=== PATIENT | male | born 1955 | race Hispanic/Latino ===

== ENCOUNTER 2016-11-25 16:14 | Emergency (ER) | payer MEDICARE ==
[2016-11-25 16:26] VITALS: TEMP 97.9; O2SAT 93
--- NOTE | 2016-11-25 16:57 | ED.PDOC ---
History of Present Illness - General Chief Complaint: Eye Problems Stated Complaint: eye complaint Time Seen by Provider: 11/25/16 16:35 Source: patient Exam Limitations: no limitations - History of Present Illness Initial Comments: Patient presents with bleeding under the left conjunctiva for about 45 minutes. Sudden onset. No trauma. Patient is on coumadin for chronic DVTs. He says his vision is a little blurry but otherwise unaffected. No other complaints. Timing/Duration: 1 hour Severity: moderate Improving Factors: nothing Worsening Factors: nothing Associated Symptoms: denies symptoms Allergies/Adverse Reactions: Allergies Penicillins Allergy (Verified 11/25/16 16:25) Home Medications: Ambulatory Orders Diltiazem HCl Coated Beads [Diltiazem HCl ER] 240 mg PO DAILY 07/05/13 Docusate Sodium [Colace] 100 mg PO DAILY 07/05/13 Furosemide [Lasix] 20 mg PO DAILY 07/05/13 Gabapentin [Neurontin] 800 mg PO ACHS 07/05/13 HYDROcodone 10MG/APAP 325MG [[place] 10/325] 1 ea PO Q4H PRN 07/05/13 Hydroxychloroquine [Plaquenil] 200 mg PO BID 07/05/13 Metformin HCl 1,000 mg PO BID 07/05/13 Methocarbamol [Robaxin] 750 mg PO Q6H 07/05/13 Oxycodone HCl [Oxycontin] 120 mg PO BID 07/05/13 Potassium Chloride [Micro-K] 10 meq PO BID 07/05/13 predniSONE 20 mg PO DAILY 07/05/13 Insulin Regular (Human) [Novolin R] 100 unit IJ .JSEE&HS #0 ml 07/06/13 hydrOXYzine HCl [Atarax] 25 mg PO Q6HRS PRN #20 tab 01/22/14 Warfarin Sodium [Coumadin] 15 mg PO DAILY 01/24/14 Doxycycline Hyclate 100 mg PO BID #20 tab 01/25/14 Acetaminophen W/ Codeine [Tylenol W/ CODEINE #3] 1 ea PO Q6H #30 11/07/14 Clindamycin HCl [Cleocin] 600 mg PO BID #28 cap 11/07/14 Levofloxacin [Levaquin] 500 mg PO QAM #7 tab 11/07/14 Mupirocin 2 % [Bactroban] 22 gm EX BID #1 tube 11/07/14 Naproxen [Naprosyn] 500 mg PO BID #30 tab 11/07/14 Tramadol HCl [Ultram] 50 mg PO Q6H #30 tab 11/07/14 Review of Systems - Review of Systems Constitutional: States: no symptoms reported EENTM: States: see HPI Respiratory: States: no symptoms reported Cardiology: States: no symptoms reported Gastrointestinal/Abdominal: States: no symptoms reported Genitourinary: States: no symptoms reported Musculoskeletal: States: no symptoms reported Skin: States: no symptoms reported Neurological: States: no symptoms reported Endocrine: States: no symptoms reported Hematologic/Lymphatic: States: no symptoms reported Past Medical History (General) - Patient Medical History Hx Seizures: No Hx Stroke: No Hx Dementia: No Hx Asthma: Yes Hx of COPD: Yes Hx Cardiac Disorders: Yes Hx Congestive Heart Failure: No Hx Pacemaker: No Hx Hypertension: Yes Hx Thyroid Disease: No Hx Diabetes: Yes Hx Gastroesophageal Reflux: No Hx Renal Disease: No Hx Cancer: Yes Hx of HIV: No Hx Hepatitis C: No Hx MRSA: No Surgical History: cholecystectomy, other - Vaccination History Hx Tetanus, Diphtheria Vaccination: Yes - 2013 Hx Influenza Vaccination: No Hx Pneumococcal Vaccination: No - Social History Hx Tobacco Use: No Hx Chewing Tobacco Use: No Hx Alcohol Use: No Hx Substance Use: No Hx Substance Use Treatment: No Hx Depression: Yes Hx Physical Abuse: No Hx Emotional Abuse: No Hx Suspected Abuse: No - Activities of Daily Living Hospice Agency (if applicable):: None - Female History Patient : No Family Medical History - Family History Mother Living Status: Age at (years of age): 86 Cause of : myocardial infarction Hx Cardiac Disease: Yes Hx Family Diabetes: Yes Father Family History: No Known Living Status: Hx Family;Other: liver CA Physical Exam - Physical Exam General Appearance: Alert Eye Exam: left other - conjunctival hemorrhage, bulging Respiratory: lungs clear, normal breath sounds Cardiovascular/Chest: regular rate, rhythm Gastrointestinal/Abdominal: normal bowel sounds, non tender, soft Progress - Progress Progress: 11/25/16 17:[address] Mota at [facility] who agreed on the diagnosis of bullous subconjunctival hemorrhage and agreed to see the patient today. Patient went by POV. Departure - Departure Clinical Impression: Subconjunctival hemorrhage Disposition: Discharge to Home or Self Care Condition: Good Departure Forms: ED Discharge - Pt. Copy, Patient Portal Self Enrollment Diet: resume usual diet Activity: increase activity as tolerated Referrals: Michael Flynn MD [Primary Care Provider] - 1-2 Weeks Home Medications: Ambulatory Orders Diltiazem HCl Coated Beads [Diltiazem HCl ER] 240 mg PO DAILY 07/05/13 Docusate Sodium [Colace] 100 mg PO DAILY 07/05/13 Furosemide [Lasix] 20 mg PO DAILY 07/05/13 Gabapentin [Neurontin] 800 mg PO ACHS 07/05/13 HYDROcodone 10MG/APAP 325MG [[place] 10/325] 1 ea PO Q4H PRN 07/05/13 Hydroxychloroquine [Plaquenil] 200 mg PO BID 07/05/13 Metformin HCl 1,000 mg PO BID 07/05/13 Methocarbamol [Robaxin] 750 mg PO Q6H 07/05/13 Oxycodone HCl [Oxycontin] 120 mg PO BID 07/05/13 Potassium Chloride [Micro-K] 10 meq PO BID 07/05/13 predniSONE 20 mg PO DAILY 07/05/13 Insulin Regular (Human) [Novolin R] 100 unit IJ .JESE&HS #0 ml 07/06/13 hydrOXYzine HCl [Atarax] 25 mg PO Q6HRS PRN #20 tab 01/22/14 Warfarin Sodium [Coumadin] 15 mg PO DAILY 01/24/14 Doxycycline Hyclate 100 mg PO BID #20 tab 01/25/14 Acetaminophen W/ Codeine [Tylenol W/ CODEINE #3] 1 ea PO Q6H #30 11/07/14 Clindamycin HCl [Cleocin] 600 mg PO BID #28 cap 11/07/14 Levofloxacin [Levaquin] 500 mg PO QAM #7 tab 11/07/14 Mupirocin 2 % [Bactroban] 22 gm EX BID #1 tube 11/07/14 Naproxen [Naprosyn] 500 mg PO BID #30 tab 11/07/14 Tramadol HCl [Ultram] 50 mg PO Q6H #30 tab 11/07/14 Additional Instructions: To to [facility] after leaving here and see Dr. Mota.
[2016-11-25 17:25] VITALS: BP 150/105
== END 2016-11-25 17:22 | disposition home or self-care (01) ==
LOC: ER 16:14
DX: H11.32 Conjunctival hemorrhage, left eye (principal); I82.509 Chronic embolism and thrombosis of unspecified deep veins of unspecified lower extremity; Z79.01 Long term (current) use of anticoagulants; J44.9 Chronic obstructive pulmonary disease, unspecified; I10 Essential (primary) hypertension; E11.9 Type 2 diabetes mellitus without complications

== ENCOUNTER 2018-01-17 20:01 | Emergency (ER) | payer MEDICARE ==
[2018-01-17 20:19] VITALS: TEMP 99
--- NOTE | 2018-01-17 20:32 | ED.PDOC ---
History of Present Illness - General Chief Complaint: General Stated Complaint: bleeding tongue Time Seen by Provider: 01/17/18 20:21 Source: patient Exam Limitations: no limitations - History of Present Illness Initial Comments: Patient presents with tongue bleeding since about 1-2 hours [employer]. He says he thinks his tongue got cracked from some acidic food. He has had this happen before. Today was different because the bleeding would not stop. He is on coumading for "blood clots". He has a blood dyscrasia that makes him hypercoagulable. No other complaints today. Last had his INR checked three days ago but does not have the results, yet. Timing/Duration: 1-3 hours Severity: mild Improving Factors: nothing Worsening Factors: nothing Associated Symptoms: denies symptoms Allergies/Adverse Reactions: Allergies Penicillins Allergy (Verified 01/17/18 20:18) Home Medications: Ambulatory Orders Diltiazem HCl Coated Beads [Diltiazem HCl ER] 240 mg PO DAILY 07/05/13 Docusate Sodium [Colace] 100 mg PO DAILY 07/05/13 Furosemide [Lasix] 20 mg PO DAILY 07/05/13 Gabapentin [Neurontin] 800 mg PO ACHS 07/05/13 HYDROcodone 10MG/APAP 325MG [[place] 10/325] 1 ea PO Q4H PRN 07/05/13 Hydroxychloroquine [Plaquenil] 200 mg PO BID 07/05/13 Metformin HCl 1,000 mg PO BID 07/05/13 Methocarbamol [Robaxin] 750 mg PO Q6H 07/05/13 Oxycodone HCl [Oxycontin] 120 mg PO BID 07/05/13 Potassium Chloride [Micro-K] 10 meq PO BID 07/05/13 predniSONE 20 mg PO DAILY 07/05/13 Insulin Regular (Human) [Novolin R] 100 unit IJ .JESE&HS #0 ml 07/06/13 hydrOXYzine HCl [Atarax] 25 mg PO Q6HRS PRN #20 tab 01/22/14 Warfarin Sodium [Coumadin] 15 mg PO DAILY 01/24/14 Doxycycline Hyclate 100 mg PO BID #20 tab 01/25/14 Acetaminophen W/ Codeine [Tylenol W/ CODEINE #3] 1 ea PO Q6H #30 11/07/14 Clindamycin HCl [Cleocin] 600 mg PO BID #28 cap 11/07/14 Levofloxacin [Levaquin] 500 mg PO QAM #7 tab 11/07/14 Mupirocin 2 % [Bactroban] 22 gm EX BID #1 tube 11/07/14 Naproxen [Naprosyn] 500 mg PO BID #30 tab 11/07/14 Tramadol HCl [Ultram] 50 mg PO Q6H #30 tab 11/07/14 Review of Systems - Review of Systems Constitutional: States: no symptoms reported EENTM: States: no symptoms reported Respiratory: States: no symptoms reported Cardiology: States: no symptoms reported Gastrointestinal/Abdominal: States: no symptoms reported Genitourinary: States: see HPI Musculoskeletal: States: no symptoms reported Skin: States: no symptoms reported Neurological: States: no symptoms reported Endocrine: States: no symptoms reported Hematologic/Lymphatic: States: see HPI Past Medical History (General) - Patient Medical History Hx Seizures: No Hx Stroke: No Hx Dementia: No Hx Asthma: Yes Hx of COPD: Yes Hx Cardiac Disorders: Yes Hx Congestive Heart Failure: No Hx Pacemaker: No Hx Hypertension: Yes Hx Thyroid Disease: No Hx Diabetes: Yes Hx Gastroesophageal Reflux: No Hx Renal Disease: No Hx Cancer: Yes Hx of HIV: No Hx Hepatitis C: No Hx MRSA: No - Vaccination History Hx Tetanus, Diphtheria Vaccination: Yes - 2013 Hx Influenza Vaccination: Yes Hx Pneumococcal Vaccination: Yes - Social History Hx Tobacco Use: No Hx Chewing Tobacco Use: No Hx Alcohol Use: No Hx Substance Use: No Hx Substance Use Treatment: No Hx Depression: Yes Hx Physical Abuse: No Hx Emotional Abuse: No Hx Suspected Abuse: No - Female History Patient : No Family Medical History - Family History Mother Living Status: Age at (years of age): 86 Cause of : myocardial infarction Hx Cardiac Disease: Yes Hx Family Diabetes: Yes Father Family History: No Known Living Status: Hx Family;Other: liver CA Physical Exam - Physical Exam General Appearance: Alert Ears, Nose, Throat: other - tongue has a superficial abrasion on it that is hemorrhaging a small amount. Located on superior left surface. Respiratory: lungs clear, normal breath sounds Cardiovascular/Chest: normal peripheral pulses, regular rate, rhythm Gastrointestinal/Abdominal: normal bowel sounds, non tender, soft Skin Exam: normal color Progress - Progress Progress: 01/17/18 22:03 Guaze soaked with lidocaine and epinephrine failed to stop the bleeding. A small amount of silver nitrate lessened the bleeding and then it was followed with gauze soaked with Neosynephrine. The bleeding then stopped. Care instructions given. E.R. warnings given. Questions were elicited and answered. The patient voiced understanding and agreement with the plan. Laboratory Tests 01/17/18 01/17/18 20:30 20:30 PT 30.8 H* INR 3.11 H POC Glucose 222 H Departure - Departure Clinical Impression: Coagulopathy, Abrasion of tongue Disposition: Discharge to Home or Self Care Condition: Good Departure Forms: ED Discharge - Pt. Copy, Patient Portal Self Enrollment Diet: resume usual diet Activity: increase activity as tolerated Referrals: Michael Flynn MD [Primary Care Provider] - 1-2 Weeks Home Medications: Ambulatory Orders Diltiazem HCl Coated Beads [Diltiazem HCl ER] 240 mg PO DAILY 07/05/13 Docusate Sodium [Colace] 100 mg PO DAILY 07/05/13 Furosemide [Lasix] 20 mg PO DAILY 07/05/13 Gabapentin [Neurontin] 800 mg PO ACHS 07/05/13 HYDROcodone 10MG/APAP 325MG [[place] 10/325] 1 ea PO Q4H PRN 07/05/13 Hydroxychloroquine [Plaquenil] 200 mg PO BID 07/05/13 Metformin HCl 1,000 mg PO BID 07/05/13 Methocarbamol [Robaxin] 750 mg PO Q6H 07/05/13 Oxycodone HCl [Oxycontin] 120 mg PO BID 07/05/13 Potassium Chloride [Micro-K] 10 meq PO BID 07/05/13 predniSONE 20 mg PO DAILY 07/05/13 Insulin Regular (Human) [Novolin R] 100 unit IJ .JESE&HS #0 ml 07/06/13 hydrOXYzine HCl [Atarax] 25 mg PO Q6HRS PRN #20 tab 01/22/14 Warfarin Sodium [Coumadin] 15 mg PO DAILY 01/24/14 Doxycycline Hyclate 100 mg PO BID #20 tab 01/25/14 Acetaminophen W/ Codeine [Tylenol W/ CODEINE #3] 1 ea PO Q6H #30 11/07/14 Clindamycin HCl [Cleocin] 600 mg PO BID #28 cap 11/07/14 Levofloxacin [Levaquin] 500 mg PO QAM #7 tab 11/07/14 Mupirocin 2 % [Bactroban] 22 gm EX BID #1 tube 11/07/14 Naproxen [Naprosyn] 500 mg PO BID #30 tab 11/07/14 Tramadol HCl [Ultram] 50 mg PO Q6H #30 tab 11/07/14 Additional Instructions: You may use drops of the neosynephrine spray to help stop bleeding if it starts again. Only soft foods or liquids for the next 12 hours. Return to the E.R. if bleeding starts up again and you cannot stop it with gauze and neosynephrine.
[2018-01-17] MEDS ORDERED: LIDOCAINE 1% W/ EPINEPHRINE 20 ML VIAL INJ ONE (20:53)
[2018-01-17] MEDS ORDERED: PHENYLEPHRINE 0.5% ONE (21:20)
[2018-01-17] MEDS ORDERED: PHENYLEPHRINE 0.5% BNAS ONE (21:33)
[2018-01-17 22:16] VITALS: BP 145/88; O2SAT 99
== END 2018-01-17 22:17 | disposition home or self-care (01) ==
LOC: ER 20:01
DX: R79.1 Abnormal coagulation profile (principal); S00.512A Abrasion of oral cavity, initial encounter; D75.9 Disease of blood and blood-forming organs, unspecified; I10 Essential (primary) hypertension; E11.9 Type 2 diabetes mellitus without complications; J44.9 Chronic obstructive pulmonary disease, unspecified; Z79.01 Long term (current) use of anticoagulants; Z85.9 Personal history of malignant neoplasm, unspecified; Z79.899 Other long term (current) drug therapy; Z79.4 Long term (current) use of insulin; Z88.0 Allergy status to penicillin; X58.XXXA Exposure to other specified factors, initial encounter; Y92.9 Unspecified place or not applicable

== ENCOUNTER 2018-11-06 21:54 | Emergency (ER) | payer MEDICARE ==
--- NOTE | 2018-11-06 22:26 | ED.PDOC ---
History of Present Illness - General Chief Complaint: Dental/Mouth Stated Complaint: bleeding tongue Time Seen by Provider: 11/06/18 22:19 Source: patient Exam Limitations: no limitations - History of Present Illness Initial Comments: Patient presents with a bleeding tongue for 3 hours. He is not sure why it started. He is on coumadin because he has a blood dyscrasia and is susceptible to "clots". I saw him for this last January as well. No other complaints. Timing/Duration: other - 3 hours Severity: mild Improving Factors: nothing Worsening Factors: nothing Associated Symptoms: denies symptoms Allergies/Adverse Reactions: Allergies Penicillins Allergy (Verified 11/06/18 22:43) Home Medications: Ambulatory Orders Diltiazem HCl Coated Beads [Diltiazem HCl ER] 240 mg PO DAILY 07/05/13 Docusate Sodium [Colace] 100 mg PO DAILY 07/05/13 Furosemide [Lasix] 20 mg PO DAILY 07/05/13 Gabapentin [Neurontin] 800 mg PO ACHS 07/05/13 HYDROcodone 10MG/APAP 325MG [[place] 10/325] 1 ea PO Q4H PRN 07/05/13 Hydroxychloroquine [Plaquenil] 200 mg PO BID 07/05/13 Metformin HCl 1,000 mg PO BID 07/05/13 Methocarbamol [Robaxin] 750 mg PO Q6H 07/05/13 Oxycodone HCl [Oxycontin] 120 mg PO BID 07/05/13 Potassium Chloride [Micro-K] 10 meq PO BID 07/05/13 predniSONE 20 mg PO DAILY 07/05/13 Insulin Regular (Human) [Novolin R] 100 unit IJ .JESE&HS #0 ml 07/06/13 hydrOXYzine HCl [Atarax] 25 mg PO Q6HRS PRN #20 tab 01/22/14 Warfarin Sodium [Coumadin] 15 mg PO DAILY 01/24/14 Doxycycline Hyclate 100 mg PO BID #20 tab 01/25/14 Acetaminophen W/ Codeine [Tylenol W/ CODEINE #3] 1 ea PO Q6H #30 11/07/14 Clindamycin HCl [Cleocin] 600 mg PO BID #28 cap 11/07/14 Levofloxacin [Levaquin] 500 mg PO QAM #7 tab 11/07/14 Mupirocin 2 % [Bactroban] 22 gm EX BID #1 tube 11/07/14 Naproxen [Naprosyn] 500 mg PO BID #30 tab 11/07/14 Tramadol HCl [Ultram] 50 mg PO Q6H #30 tab 11/07/14 Review of Systems - Review of Systems Constitutional: States: no symptoms reported EENTM: States: see HPI Respiratory: States: no symptoms reported Cardiology: States: no symptoms reported Gastrointestinal/Abdominal: States: no symptoms reported Genitourinary: States: no symptoms reported Musculoskeletal: States: no symptoms reported Skin: States: no symptoms reported Neurological: States: no symptoms reported Endocrine: States: no symptoms reported Hematologic/Lymphatic: States: no symptoms reported Past Medical History (General) - Patient Medical History Hx Seizures: No Hx Stroke: No Hx Dementia: No Hx Asthma: Yes Hx of COPD: Yes Hx Cardiac Disorders: Yes Hx Congestive Heart Failure: No Hx Pacemaker: No Hx Hypertension: Yes Hx Thyroid Disease: No Hx Diabetes: Yes Hx Gastroesophageal Reflux: No Hx Renal Disease: No Hx Cancer: Yes Hx of HIV: No Hx Hepatitis C: No Hx MRSA: No - Vaccination History Hx Tetanus, Diphtheria Vaccination: Yes - 2014 Hx Influenza Vaccination: Yes Hx Pneumococcal Vaccination: Yes - Social History Hx Tobacco Use: No Hx Chewing Tobacco Use: No Hx Alcohol Use: No Hx Substance Use: No Hx Substance Use Treatment: No Hx Depression: Yes Hx Physical Abuse: No Hx Emotional Abuse: No Hx Suspected Abuse: No - Female History Patient : No Family Medical History - Family History Mother Living Status: Age at (years of age): 86 Cause of : myocardial infarction Hx Cardiac Disease: Yes Hx Family Diabetes: Yes Father Family History: No Known Living Status: Hx Family;Other: liver CA Physical Exam - Physical Exam General Appearance: Alert Ears, Nose, Throat: other - punctate lesion on left anterior 1/3 of the tongue bleeding mildly but continuously. Respiratory: lungs clear, normal breath sounds Cardiovascular/Chest: normal peripheral pulses, regular rate, rhythm Skin Exam: normal color Progress - Progress Progress: 11/06/18 23:23 Three silver nitrate sticks used to stop the bleeding. INR was therapeutic. Care instructions given. E.R. warnings given. Questions were elicited and answered. Patient voiced understanding and agreement with the plan. Departure - Departure Clinical Impression: Hemorrhage of tongue Disposition: Discharge to Home or Self Care Condition: Good Departure Forms: ED Discharge - Pt. Copy, Patient Portal Self Enrollment Instructions: DI for Mouth Pain Diet: other - as per your regular doctor Activity: increase activity as tolerated Referrals: Michael Flynn MD [Primary Care Provider] - 1-2 Weeks Home Medications: Ambulatory Orders Diltiazem HCl Coated Beads [Diltiazem HCl ER] 240 mg PO DAILY 07/05/13 Docusate Sodium [Colace] 100 mg PO DAILY 07/05/13 Furosemide [Lasix] 20 mg PO DAILY 07/05/13 Gabapentin [Neurontin] 800 mg PO ACHS 07/05/13 HYDROcodone 10MG/APAP 325MG [[place] 10/325] 1 ea PO Q4H PRN 07/05/13 Hydroxychloroquine [Plaquenil] 200 mg PO BID 07/05/13 Metformin HCl 1,000 mg PO BID 07/05/13 Methocarbamol [Robaxin] 750 mg PO Q6H 07/05/13 Oxycodone HCl [Oxycontin] 120 mg PO BID 07/05/13 Potassium Chloride [Micro-K] 10 meq PO BID 07/05/13 predniSONE 20 mg PO DAILY 07/05/13 Insulin Regular (Human) [Novolin R] 100 unit IJ .JESE&HS #0 ml 07/06/13 hydrOXYzine HCl [Atarax] 25 mg PO Q6HRS PRN #20 tab 01/22/14 Warfarin Sodium [Coumadin] 15 mg PO DAILY 01/24/14 Doxycycline Hyclate 100 mg PO BID #20 tab 01/25/14 Acetaminophen W/ Codeine [Tylenol W/ CODEINE #3] 1 ea PO Q6H #30 11/07/14 Clindamycin HCl [Cleocin] 600 mg PO BID #28 cap 11/07/14 Levofloxacin [Levaquin] 500 mg PO QAM #7 tab 11/07/14 Mupirocin 2 % [Bactroban] 22 gm EX BID #1 tube 11/07/14 Naproxen [Naprosyn] 500 mg PO BID #30 tab 11/07/14 Tramadol HCl [Ultram] 50 mg PO Q6H #30 tab 11/07/14 Additional Instructions: Return to the E.R. for bleeding. Follow up with your regular doctor as schedule d.
[2018-11-07 00:15] VITALS: BP 140/91; TEMP 97.3; O2SAT 97
== END 2018-11-06 23:54 | disposition home or self-care (01) ==
LOC: ER 21:54
DX: R58 Hemorrhage, not elsewhere classified (principal); K14.8 Other diseases of tongue; D75.9 Disease of blood and blood-forming organs, unspecified; I10 Essential (primary) hypertension; E11.9 Type 2 diabetes mellitus without complications; F32.9 Major depressive disorder, single episode, unspecified; J44.9 Chronic obstructive pulmonary disease, unspecified; Z79.01 Long term (current) use of anticoagulants; Z79.4 Long term (current) use of insulin; Z79.899 Other long term (current) drug therapy; Z88.0 Allergy status to penicillin

== ENCOUNTER → 2018-12-09 | Outpatient (CLI) | payer MEDICARE ==
--- NOTE | 2018-12-09 10:20 | RAD ---
EXAM DESCRIPTION: Chest,2 Views CLINICAL HISTORY: POSITIVE TB TEST COMPARISON: Previous study September 30, 2018 TECHNIQUE: PA/lateral FINDINGS: Plate and screws in the lower C-spine. There is no acute appearing cardiac or pulmonary abnormality. Heart size is large with increased pulmonary vascularity. Blunting of the left costophrenic angle suggests small pleural effusion. No right pleural effusion or pneumothorax. Partial volume loss or patchy infiltrate in the medial right lung base. Lungs are otherwise clear with no consolidating infiltrate. Lateral view shows intact sternum and T-spine. IMPRESSION: Large heart with increased vascularity. Electronically signed by: Juan Scott MD 12/09/2018 10:18 AM CDT
== END ==
LOC: RAD 09:39
PROVIDERS: ATTEND Nurse Practitioner
DX: R76.11 Nonspecific reaction to tuberculin skin test without active tuberculosis (principal); R09.89 Other specified symptoms and signs involving the circulatory and respiratory systems

== ENCOUNTER 2019-06-15 11:38 | Emergency (ER) | payer MEDICARE ==
[2019-06-15] MEDS ORDERED: LIDOCAINE 1% W/ EPINEPHRINE 20 ML VIAL INJ ONE (11:51)
[2019-06-15 11:59] VITALS: TEMP 96.5
--- NOTE | 2019-06-15 11:59 | ED.PDOC ---
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 The patient states that he accidentally bit his tongue while eating 2 hours ago and has been unable to stop the bleeding at home. He reports a history of similar symptoms in the past which they had to cauterize the area. He denies any other symptoms or complaints at this time. Allergies/Adverse Reactions: Allergies Penicillins Allergy (Verified 11/06/18 22:43) Home Medications: Ambulatory Orders Diltiazem HCl Coated Beads [Diltiazem HCl ER] 240 mg PO DAILY 07/05/13 Docusate Sodium [Colace] 100 mg PO DAILY 07/05/13 Furosemide [Lasix] 20 mg PO DAILY 07/05/13 Gabapentin [Neurontin] 800 mg PO ACHS 07/05/13 HYDROcodone 10MG/APAP 325MG [[place] 10/325] 1 ea PO Q4H PRN 07/05/13 Hydroxychloroquine [Plaquenil] 200 mg PO BID 07/05/13 Metformin HCl 1,000 mg PO BID 07/05/13 Methocarbamol [Robaxin] 750 mg PO Q6H 07/05/13 Oxycodone HCl [Oxycontin] 120 mg PO BID 07/05/13 Potassium Chloride [Micro-K] 10 meq PO BID 07/05/13 predniSONE 20 mg PO DAILY 07/05/13 Insulin Regular (Human) [Novolin R] 100 unit IJ .JESE&HS #0 ml 07/06/13 hydrOXYzine HCl [Atarax] 25 mg PO Q6HRS PRN #20 tab 01/22/14 Warfarin Sodium [Coumadin] 15 mg PO DAILY 01/24/14 Doxycycline Hyclate 100 mg PO BID #20 tab 01/25/14 Acetaminophen W/ Codeine [Tylenol W/ CODEINE #3] 1 ea PO Q6H #30 11/07/14 Clindamycin HCl [Cleocin] 600 mg PO BID #28 cap 11/07/14 Levofloxacin [Levaquin] 500 mg PO QAM #7 tab 11/07/14 Mupirocin 2 % [Bactroban] 22 gm EX BID #1 tube 11/07/14 Naproxen [Naprosyn] 500 mg PO BID #30 tab 11/07/14 Tramadol HCl [Ultram] 50 mg PO Q6H #30 tab 11/07/14 Review of Systems - Review of Systems Constitutional: Denies: chills, fever EENTM: States: other - Tongue bleeding. Denies: nose congestion Respiratory: Denies: cough, short of breath Gastrointestinal/Abdominal: Denies: nausea, vomiting Neurological: Denies: headache, weakness Hematologic/Lymphatic: States: easy bleeding - Due to Coumadin Past Medical History (General) - Patient Medical History Hx Seizures: No Hx Stroke: No Hx Dementia: No Hx Asthma: Yes Hx of COPD: Yes Hx Cardiac Disorders: Yes Hx Congestive Heart Failure: No Hx Pacemaker: No Hx Hypertension: Yes Hx Thyroid Disease: No Hx Diabetes: Yes Hx Gastroesophageal Reflux: No Hx Renal Disease: No Hx Cancer: Yes Hx of HIV: No Hx Hepatitis C: No Hx MRSA: No - Vaccination History Hx Tetanus, Diphtheria Vaccination: Yes - 2013 Hx Influenza Vaccination: Yes Hx Pneumococcal Vaccination: Yes - Social History Hx Tobacco Use: No Hx Chewing Tobacco Use: No Hx Alcohol Use: No Hx Substance Use: No Hx Substance Use Treatment: No Hx Depression: Yes Hx Physical Abuse: No Hx Emotional Abuse: No Hx Suspected Abuse: No - Female History Patient : No Family Medical History - Family History Mother Living Status: Age at (years of age): 86 Cause of : myocardial infarction Hx Cardiac Disease: Yes Hx Family Diabetes: Yes Father Family History: No Known Living Status: Hx Family;Other: liver CA Physical Exam - Physical Exam General Appearance: Alert, No apparent distress, Well Developed, Well Nourished Eye Exam: bilateral normal Ears, Nose, Throat: other - There is a small superficial laceration to the right tip of the tongue with active bleeding. No other oral lesions or areas of bleeding noted. Respiratory: lungs clear, normal breath sounds, no respiratory distress Cardiovascular/Chest: regular rate, rhythm Extremity: normal range of motion, normal inspection Neurologic: alert, normal mood/affect, oriented x 3, other - Moves all extremities without focal deficit. Comments: Vital Signs - 24 hr 06/15/19 11:56 Temperature 96.5 F L Pulse Rate [ 69 Right Brachial] Respiratory 20 Rate Blood Pressure 165/87 [Right Arm] O2 Sat by Pulse 95 Oximetry Progress - Progress Progress: 06/15/19 12:30 Patient recheck: Bleeding has remained stopped. At this time the patient is stable to be discharged home. He was given instructions for applying ice to the area as well as a black tea bag for recurrent episodes of bleeding. He was instructed if this does not resolve bleeding after ~15 min that he would need to return to the emergency department. The patient and his at the bedside have voiced understanding and agree with the plan. Procedures - Additional Procedures Progress: 11:50 AM: Silver nitrate was applied to the area of bleeding along with gauze soaked with epinephrine and lidocaine. 12:21 PM Small area of oozing still noted, silver nitrate again applied. PT tolerated procedure well. Departure - Departure Clinical Impression: Laceration of tongue without complication Qualifiers: Encounter type: initial encounter Qualified Code(s): S01.512A - Laceration without foreign body of oral cavity, initial encounter Time of Disposition: 12:30 Disposition: Discharge to Home or Self Care Condition: Good Departure Forms: ED Discharge - Pt. Copy, Patient Portal Self Enrollment Referrals: Michael Flynn MD [Primary Care Provider] - 1-2 Weeks Home Medications: Ambulatory Orders Diltiazem HCl Coated Beads [Diltiazem HCl ER] 240 mg PO DAILY 07/05/13 Docusate Sodium [Colace] 100 mg PO DAILY 07/05/13 Furosemide [Lasix] 20 mg PO DAILY 07/05/13 Gabapentin [Neurontin] 800 mg PO ACHS 07/05/13 HYDROcodone 10MG/APAP 325MG [[place] 10/325] 1 ea PO Q4H PRN 07/05/13 Hydroxychloroquine [Plaquenil] 200 mg PO BID 07/05/13 Metformin HCl 1,000 mg PO BID 07/05/13 Methocarbamol [Robaxin] 750 mg PO Q6H 07/05/13 Oxycodone HCl [Oxycontin] 120 mg PO BID 07/05/13 Potassium Chloride [Micro-K] 10 meq PO BID 07/05/13 predniSONE 20 mg PO DAILY 07/05/13 Insulin Regular (Human) [Novolin R] 100 unit IJ .JESE&HS #0 ml 07/06/13 hydrOXYzine HCl [Atarax] 25 mg PO Q6HRS PRN #20 tab 01/22/14 Warfarin Sodium [Coumadin] 15 mg PO DAILY 01/24/14 Doxycycline Hyclate 100 mg PO BID #20 tab 01/25/14 Acetaminophen W/ Codeine [Tylenol W/ CODEINE #3] 1 ea PO Q6H #30 11/07/14 Clindamycin HCl [Cleocin] 600 mg PO BID #28 cap 11/07/14 Levofloxacin [Levaquin] 500 mg PO QAM #7 tab 11/07/14 Mupirocin 2 % [Bactroban] 22 gm EX BID #1 tube 11/07/14 Naproxen [Naprosyn] 500 mg PO BID #30 tab 11/07/14 Tramadol HCl [Ultram] 50 mg PO Q6H #30 tab 11/07/14 Additional Instructions: If bleeding recurs you may try ice to the area at home as well as a black tea bag applied for approximately 15 minutes. If bleeding is unresolved return to the emergency department.
[2019-06-15 12:51] VITALS: BP 130/63; O2SAT 94
== END 2019-06-15 12:50 | disposition home or self-care (01) ==
LOC: ER 11:38
DX: S01.512A Laceration without foreign body of oral cavity, initial encounter (principal); J44.9 Chronic obstructive pulmonary disease, unspecified; I51.9 Heart disease, unspecified; I10 Essential (primary) hypertension; E11.9 Type 2 diabetes mellitus without complications; F32.9 Major depressive disorder, single episode, unspecified; Z85.9 Personal history of malignant neoplasm, unspecified; Z79.01 Long term (current) use of anticoagulants; Z79.899 Other long term (current) drug therapy; Z79.4 Long term (current) use of insulin; Z88.0 Allergy status to penicillin; X58.XXXA Exposure to other specified factors, initial encounter; Y92.9 Unspecified place or not applicable; Y93.89 Activity, other specified

== ENCOUNTER → 2019-10-05 | Outpatient (CLI) | payer MEDICARE | LOC: LAB.O 10:44 | PROVIDERS: ATTEND Internal Medicine | DX: M06.9 Rheumatoid arthritis, unspecified (principal); Z79.899 Other long term (current) drug therapy ==

== ENCOUNTER → 2020-02-25 | Outpatient (CLI) | payer MEDICARE | LOC: LAB.O 10:51 | PROVIDERS: ATTEND Internal Medicine | DX: M06.9 Rheumatoid arthritis, unspecified (principal) ==